=== PATIENT | male | born 1990 | race Caucasian/White ===

== ENCOUNTER → 2019-04-12 | Outpatient (CLI) | payer BC ==
--- NOTE | 2019-04-12 08:33 | US ---
EXAMINATION TYPE: US scrotum with doppler. Grayscale and color Doppler Duplex imaging performed of t he scrotum. DATE OF EXAM: 04/12/2019 COMPARISON: NONE CLINICAL HISTORY: N50.9 Disorder of male genital organs. Left side pain EXAM MEASUREMENTS: TESTICLES: Right Testicle: 3.3 x 2.1 x 2.8 cm Left Testicle: 1.6 x 1.0 x 1.8 cm EPIDIDYMIS HEAD: Right Epididymis: 1.2 x .3 x .9 cm Left Epididymis: 4.0 x 2.0 x 2.4 cm Doppler performed to assess for testicular vascularity; good bilateral color flow and waveforms are s een. There is no evidence of testicular torsion. Presence of hydroceles: No Presence of varicoceles: Yes on the left Left epididymal cyst 1.5 x .7 x 1.2 cm IMPRESSION: Small left epididymal cyst measuring 1.5 cm and small left-sided varicocele. No sonograph ic evidence of epididymoorchitis nor testicular torsion at the time of exam.
== END | disposition home or self-care (01) ==
LOC: RADUSWWP 07:08
PROVIDERS: ATTEND Family Medicine
DX: N50.3 Cyst of epididymis (principal); I86.1 Scrotal varices
CPT/HCPCS: 76870; 93975

== ENCOUNTER → 2019-04-12 | Day surgery (SDC) | payer BC ==
[2019-04-07 15:28] VITALS: BMI 24.4
[~2019-04-12] MED LIST: LACTATED RINGERS 1,000 ML IV SCH; LIDOCAINE 1% 20 ML VIAL (10MG/ML) FOR IV START INTRADERMA PRN; LIDOCAINE 1% INJ 10MG/ML (20 ML MDV) ONE; MIDAZOLAM 2 MG/2 ML VIAL ONE; PROPOFOL 10 MG/ML 20 ML VIAL IV ONE
[2019-04-12 08:24] VITALS: TEMP 98.5
--- NOTE | 2019-04-12 08:53 | P.GSHP ---
History of Present Illness H&P Date: 04/12/19 Chief Complaint: GERD, epigastric pain Inset 29-year-old male who presents today for EGD. He's had issues with GERD. Past Medical History Additional Past Medical History / Comment(s): HEMMOROIDS; OCC BLOOD IN STOOL. SEVERE HEARTBURN SINCE 11/2018; C/O ABD CRAMPS, THROAT SORENESS. History of Any Multi-Drug Resistant Organisms: None Reported Past Surgical History: Hernia Repair Additional Past Surgical History / Comment(s): WISDOM TEETH Past Anesthesia/Blood Transfusion Reactions: No Reported Reaction Smoking Status: Former smoker - Past Family History Mother Family Medical History: No Reported History Medications and Allergies Home Medications Medication Instructions Recorded Confirmed Type Omeprazole [PriLOSEC] 20 mg PO AC-BRKFST 04/07/19 04/07/19 History Allergies Allergy/AdvReac Type Severity Reaction Status Date / Time No Known Allergies Allergy Verified 04/12/19 08:13 Surgical - Exam Vital Signs Temp Pulse Resp BP Pulse Ox 98.5 F 84 16 143/87 100 04/12/19 08:22 04/12/19 08:22 04/12/19 08:22 04/12/19 08:22 04/12/19 08:22 - General well developed, well nourished, no distress - Eyes PERRL - ENT normal pinna - Neck no masses - Respiratory normal expansion - Cardiovascular Rhythm: regular - Abdomen Abdomen: soft, non tender Assessment and Plan Assessment: GERD. We'll perform EGD.
--- NOTE | 2019-04-12 09:02 | P.OP ---
Date of Procedure: 04/12/19 Preoperative Diagnosis: GERD Postoperative Diagnosis: Antral gastritis Moderate size sliding hiatal hernia Esophagitis Procedure(s) Performed: EGD Anesthesia: MAC Surgeon: Serafin Anne Pathology: other (Antrum, esophagus) Condition: stable Disposition: PACU Description of Procedure: Patient's placed on the endoscopy table in the lateral position. He received IV sedation. The gastroscope placed oropharynx and passed in the esophagus and stomach. Scope was then placed through the pylorus. The first and second portion of duodenum appeared normal. Scope was then brought back the antrum and this appeared mildly inflamed. A biopsies was performed. The scope was unretroflexed and remainder the stomach appeared normal. There was a moderate size sliding hiatal hernia. The GE junction was at 38 cm.. The distal esophagus appeared inflamed and a biopsies was performed. The proximal esophag us appeared normal. The scope was withdrawn for patient.
[2019-04-12 09:26] VITALS: BP 118/69; PULSE 81; RESP 16
== END | disposition home or self-care (01) ==
LOC: ORWHC2ENDO 07:40
PROVIDERS: ATTEND Surgery
DX: K29.50 Unspecified chronic gastritis without bleeding (principal); K21.0 Gastro-esophageal reflux disease with esophagitis; K44.9 Diaphragmatic hernia without obstruction or gangrene; Z87.891 Personal history of nicotine dependence; Z79.899 Other long term (current) drug therapy; Z87.19 Personal history of other diseases of the digestive system; Z98.818 Other dental procedure status; Z98.890 Other specified postprocedural states
CPT/HCPCS: 88305; 43239; J2250; J2001; J2704

== ENCOUNTER 2019-05-05 07:57 | Inpatient (IN) | payer BC ==
[~2019-05-05 07:57] MED LIST changes: +DEXAMETHASONE SOD PHOSPHATE 10 MG/ML 1 ML VIAL IV ONE; +HEPARIN SODIUM,PORCINE 5,000 UNIT/ML 1 ML VIAL SQ ONE; +HYDROmorphone 0.5 MG/0.5 ML SYRINGE IVP PRN; -LACTATED RINGERS 1,000 ML IV SCH; -LIDOCAINE 1% 20 ML VIAL (10MG/ML) FOR IV START INTRADERMA PRN; -LIDOCAINE 1% INJ 10MG/ML (20 ML MDV) ONE; -MIDAZOLAM 2 MG/2 ML VIAL ONE; +ONDANSETRON 4 MG/2 ML VIAL IVP ONE; -PROPOFOL 10 MG/ML 20 ML VIAL IV ONE
[2019-05-05] MEDS: LACTATED RINGERS 1,000 ML IV SCH (08:36)
[2019-05-05] MEDS ORDERED: LIDOCAINE 1% 20 ML VIAL (10MG/ML) FOR IV START INTRADERMA ONE (08:36)
--- NOTE | 2019-05-05 09:12 | P.GSHP ---
History of Present Illness H&P Date: 05/05/19 Chief Complaint: GERD This a 29-year-old male for from Dr. Wiseman. The patient has had long-standing problems with reflux esophagitis. The patient underwent recent EGD is found have evidence of esophagitis. Patient has been well informed on the procedure o f laparoscopic Maci fundoplication. The patient is aware the risk of the conversion to the open procedure, risk of injury to the stomach, liver and spleen. The patient is also a risk of recurrent GERD and dysphagia symptoms. The patient understands there is a postoperative diet of full liquids for 2 weeks after surgery. Past Medical History Past Medical History: GERD/Reflux Additional Past Medical History / Comment(s): HEMMOROIDS; OCC BLOOD IN STOOL. SEVERE HEARTBURN SINCE 11/2018; C/O ABD CRAMPS, THROAT SORENESS. History of Any Multi-Drug Resistant Organisms: None Reported Past Surgical History: Hernia Repair Additional Past Surgical History / Comment(s): WISDOM TEETH, EGD Past Anesthesia/Blood Transfusion Reactions: No Reported Reaction Smoking Status: Former smoker - Past Family History Mother Family Medical History: No Reported History Medications and Allergies Home Medications Medication Instructions Recorded Confirmed Type Omeprazole [PriLOSEC] 20 mg PO AC-BRKFST 04/07/19 05/05/19 History Allergies Allergy/AdvReac Type Severity Reaction Status Date / Time No Known Allergies Allergy Verified 05/05/19 08:17 Surgical - Exam Vital Signs Temp Pulse Resp BP Pulse Ox 98.0 F 83 18 120/78 100 05/05/19 08:22 05/05/19 08:22 05/05/19 08:22 05/05/19 08:22 05/05/19 08:22 - General well developed, well nourished, no distress - Eyes PERRL - ENT normal pinna - Neck no masses - Respiratory normal expansion - Cardiovascular Rhythm: regular - Abdomen Abdomen: soft, non tender Assessment and Plan Assessment: GERD. We'll perform laparoscopic Maci fundal plication.
[2019-05-05] MEDS ORDERED: GLYCOPYRROLATE 0.2 MG/ML 2 ML VIAL ONE (09:30)
[2019-05-05] MEDS ORDERED: KETOROLAC 30 MG/ML 1 ML VIAL ONE (09:30)
[2019-05-05] MEDS ORDERED: PROPOFOL 10 MG/ML 20 ML VIAL IV ONE (09:30)
[2019-05-05] MEDS ORDERED: LIDOCAINE 1% INJ 10MG/ML (20 ML MDV) ONE (09:30)
[2019-05-05] MEDS ORDERED: ROCURONIUM BROMIDE 10 MG/ML 10 ML VIAL IV ONE (09:30)
[2019-05-05] MEDS ORDERED: fentaNYL (PF) 50 MCG/ML 2 ML AMP ONE (09:30)
[2019-05-05] MEDS ORDERED: HYDROmorphone (PF) 1 MG/ML ONE (09:30)
[2019-05-05] MEDS ORDERED: MIDAZOLAM 2 MG/2 ML VIAL ONE (09:30)
[2019-05-05] MEDS ORDERED: NEOSTIGMINE 1 MG/ML 10 ML VIAL ONE (09:30)
[2019-05-05] MEDS ORDERED: PHENYLEPHRINE-0.9% NACL SYG 1 MG/10 ML SYRINGE ONE (09:30)
[2019-05-05] MEDS ORDERED: BUPIVACAINE (PF) 0.25% 30 ML VIAL SQ ONE (10:03)
--- NOTE | 2019-05-05 10:37 | P.OP ---
Date of Procedure: 05/05/19 Preoperative Diagnosis: GERD Postoperative Diagnosis: GERD Procedure(s) Performed: Laparoscopic Maci fundal plication Anesthesia: TYESHA Surgeon: Serafin Anne Estimated Blood Loss (ml): 5 Pathology: none sent Condition: stable Disposition: PACU Description of Procedure: The patient was placed on the operating table in the supine position. The patient received general anesthesia. And was placed in dorsal lithotomy position. The patient was prepped and draped in the usual sterile fashion. The skin incision sites were anesthetized with 1% local Xylocaine. The skin was incised in the left periumbilical area and then using a blade less 5 mm trocar under direct visualization panel cavity was entered. After adequate insufflation the laparoscope was then placed into the peritoneal cavity. Next a 5 mm trochars placed in the right epigastric position. Another 5 millimeter trocar the right lateral position. Another 5 millimeter trocar in the left lateral position a 5 mm trocar is placed in the left epigastric position. And then the initial 5 mm trocar was exchanged for a 10 mm trocar. The left lateral lobe liver was retracted. The hernia was seen. The crural defect was then dissected using the Harmonic scissors device. A 360 crural dissection was p erformed the esophagus stomach was reduced back into the peritoneal Cavity. The crural defect was then closed using 2-0 Ethibond suture. Next the fundus of the stomach was mobilized using the [place] scissors device. and then a 58-[place]uv[place] bougie dilator was placed oropharynx passed into the esophagus and stomach the fundal plication wrap was then performed by grasping the fundus posteriorly and bringing it around the esophagus and stomach fundoplication was then performed using 2-0 Ethibond suture. Care was taken that the fundal location rested over top of the intra-abdominal esophagus. There was no injury seen to the stomach or esophagus. The dilator was then withdrawn. The abdomen was irrigated there is no bleeding seen. The trochars were then withdrawn and then skin incision sites were closed using 3-0 Monocryl suture Steri-Strips are applied. Patient thought procedure well and sent to recovery room in stable condition.
[2019-05-05] MEDS ORDERED: LACTATED RINGERS 1,000 ML IV ONE (10:54)
[2019-05-05] MEDS: METOCLOPRAMIDE 5 MG/ML 2 ML VIAL IVP SCH ×3 (14:07→23:00)
[2019-05-05 15:18] VITALS: BMI 24.4
--- NOTE | 2019-05-05 15:58 | FL ---
EXAMINATION TYPE: FL esophagus cervic/pharynx DATE OF EXAM: 05/05/2019 LIMITED UGI-ESOPHAGRAM: CLINICAL HISTORY: Post Sedrick fundoplication TECHNIQUE: Limited esophagram is performed utilizing 20 oz of Omnipaque 350. A total of 46 seconds o f fluoroscopic time was utilized during procedure. 12 images were obtained. FINDINGS: Small amount of free air is under the right diaphragm. Small to moderate amount of free air is under the left diaphragm. Air is also bowel gas under the right diaphragm. The esophagus dilates to normal caliber within the visualized portion. This extends to the Sedrick fun doplication. At the level of the Sedrick fundoplication there is moderate hesitancy passing through th is level. This opens to a reasonable caliber however. Overhead radiographs were obtained. No suspicious changes to suggest extravasation is evident. IMPRESSION: No evidence of leak or significant obstruction status post Sedrick fundoplication surgery earlier today. Moderate hesitancy passing through the postsurgical site is evident at this time.
[2019-05-05] MEDS: D5-0.45% NACL WITH KCL 20MEQ/L 1,000 ML IV SCH ×2 (16:24→23:05)
[2019-05-05] MEDS: HYDROmorphone 1 MG/ML 1 ML SYRINGE IVP PRN ×2 (17:52→23:01)
--- NOTE | 2019-05-05 23:11 | P.CONS ---
History of Present Illness - Reason for Consult Consult date: 05/05/19 Medical management And postoperative care - Chief Complaint Status post Maci fundoplication - History of Present Illness Patient is a 29-year-old male with a known history of hemorrhoids, GERD for several years has been having recently problems with gastric reflux and recently had EGD which showed esophagitis. Patient underwent laparoscopic Maci fundoplication today. Patient tolerated the procedure very well. Currently pain is controlled with IV Dilaudid. Patient is also complaining of urinary retention and lower abdominal fullness. Denied any complaints of chest pain or shortness of breath. No nausea vomiting or diarrhea. No fever no chills. No cough or sputum production. Patient does have a history of smoking. Review of Systems Constitutional: Patient denies any fever or chills . No generalized weakness or weight loss. Abdomen: Patient denied nausea vomiting and diarrhea and abdominal pain. Cardiovascular: Patient denies any chest pain or short of breath no palpitations. Respiratory: patient denied any cough is from production. No shortness of breath Neurologic: Patient denied any numbness or tingling headache. Musculoskeletal: Patient denies any complaints of joint swelling or deformity. Skin: Negative Psychiatric: Negative Endocrine: No heat or cold intolerance. No recent weight gain. Genitourinary: No dysuria or hematuria. All other 14 point ROS negative except the above Past Medical History Past Medical History: GERD/Reflux Additional Past Medical History / Comment(s): HEMMOROIDS; OCC BLOOD IN STOOL. SEVERE HEARTBURN SINCE 11/2018; C/O ABD CRAMPS, THROAT SORENESS. History of Any Multi-Drug Resistant Organisms: None Reported Past Surgical History: Hernia Repair Additional Past Surgical History / Comment(s): WISDOM TEETH, EGD Past Anesthesia/Blood Transfusion Reactions: No Reported Reaction Past Psychological History: No Psychological Hx Reported Smoking Status: Never smoker Past Alcohol Use History: Occasional Additional Past Alcohol Use History / Comment(s): SMOKED FOR FEW MONTHS; CHEWED TOBACCO FOR 6 YEARS, QUIT 2017 Past Drug Use History: None Reported - Past Family History Mother Family Medical History: No Reported History Medications and Allergies Home Medications Medication Instructions Recorded Confirmed Type Omeprazole [PriLOSEC] 20 mg PO AC-BRKFST 04/07/19 05/05/19 History Allergies Allergy/AdvReac Type Severity Reaction Status Date / Time No Known Allergies Allergy Verified 05/05/19 08:17 Physical Exam Vitals: Vital Signs Temp Pulse Pulse Pulse Resp BP BP 05/05/19 13:57 98.8 F 90 17 135/87 05/05/19 13:10 100 16 132/78 05/05/19 12:30 95 16 137/79 05/05/19 12:15 96 16 136/79 05/05/19 11:55 93 16 137/80 05/05/19 11:40 86 16 135/86 05/05/19 11:25 91 16 137/75 05/05/19 11:10 94 18 130/74 05/05/19 10:55 96 16 130/74 05/05/19 10:40 97.5 F L 92 14 141/93 05/05/19 08:22 98.0 F 83 18 120/78 Pulse Ox 05/05/19 13:57 98 05/05/19 13:10 98 05/05/19 12:30 99 05/05/19 12:15 99 05/05/19 11:55 100 05/05/19 11:40 99 05/05/19 11:25 99 05/05/19 11:10 99 05/05/19 10:55 100 05/05/19 10:40 100 05/05/19 08:22 100 Intake and Output 05/04/19 05/05/19 05/05/19 22:59 06:59 14:59 Intake Total 1750 Output Total 5 Balance 1745 Intake: IV 1750 Output: Estimated Blood Loss 5 Other: Weight 81.647 kg PHYSICAL EXAMINATION: Patient is lying in the bed comfortably, no acute distress, awake alert and oriented.. HEENT: Normocephalic. Neck is supple. Pupils reactive. Nostrils clear. Oral cavity is moist. Ears reveal no drainage. Neck reveals no JVD, carotid bruits, or thyromegaly. CHEST EXAMINATION: Trachea is central. Symmetrical expansion. Lung garcia clear to auscultation and percussion. CARDIAC: Normal S1, S2 with no gallops. No murmurs ABDOMEN: Soft. Bowel sounds normal. No organomegaly. No abdominal bruits. Extremities: reveal no edema. No clubbing or cyanosis Neurologically awake, alert, oriented x3 with well-coordinated movements. No focal deficits noted Skin: No rash or skin lesions. Psychiatric: Coperative. Nonsuicidal Musculoskeletal: No joint swelling or deformity. Normal range of motion. Assessment and Plan Assessment: Status post laparoscopic Maci fundoplication. Postoperative day 0 Gastroesophageal reflux disease History of hemorrhoids with occasional bleeding. Currently ambulation for DVT prophylaxis Possible urinary retention. Bladder scan was ordered. Plan: Patient be continued on IV hydration. Encourage incentive spirometry and ambulation. Started on clear liquid diet. Patient has not passed flatus. We will continue the pain management and further recommendations based on the clinical course. Thank you for your consult. Time with Patient: Greater than 30
[2019-05-06] MEDS: HYDROmorphone 1 MG/ML 1 ML SYRINGE IVP PRN ×2 (03:08→07:11)
[2019-05-06] MEDS: LACTATED RINGERS 1,000 ML IV SCH (03:54)
[2019-05-06] MEDS: METOCLOPRAMIDE 5 MG/ML 2 ML VIAL IVP SCH ×2 (05:19→11:51)
[2019-05-06] MEDS ORDERED: HYDROcodone/APAP 5-325MG 1 EACH TAB PO PRN (07:40)
[2019-05-06 08:15] LABS: African American GFR (CKD) >90 (>60 ml/min/1.73 sqM); Anion Gap 7 mmol/L; Blood Urea Nitrogen 10 mg/dL (9-20); Calcium 9.1 mg/dL (8.4-10.2); Carbon Dioxide 29 mmol/L (22-30); Chloride 104 mmol/L (98-107); Glucose 107 mg/dL (74-99); Potassium 3.9 mmol/L (3.5-5.1); Sodium 140 mmol/L (137-145)
[2019-05-06 08:17] LABS: Basophils % (A) 0 %; Eosinophils % (A) 0 %; HCT 38.2 % (39.0-53.0); HGB 13.2 gm/dL (13.0-17.5); Lymphocytes # (A) 2.5 k/uL (1.0-4.8); Lymphocytes % (A) 19 %; MCH 29.4 pg (25.0-35.0); MCHC 34.4 g/dL (31.0-37.0); MCV 85.3 fL (80.0-100.0); Mean Platelet Volume 6.7; Monocytes # (A) 0.8 k/uL (0-1.0); Monocytes % (A) 6 %; Neutrophils % (A) 73 %; Platelet Count 212 k/uL (150-450); RBC 4.48 m/uL (4.30-5.90); WBC 13.6 k/uL (3.8-10.6)
[2019-05-06 08:32] VITALS: BP 129/76; PULSE 92; RESP 16; TEMP 98.5
--- NOTE | 2019-05-06 11:00 | P.DS ---
Providers Date of admission: 05/05/19 07:57 Expected date of discharge: 05/06/19 Attending physician: Serafin Anne Consults: 05/05/19 10:37 Consult Physician Routine Consulting Provider: Chidi Cole Consult Reason/Comments: Medical management Do you want consulting provider notified?: Yes Primary care physician: Memo Wiseman MD Hospital Course: 29-year-old male who underwent laparoscopic Maci fundoplication with Dr. Anne on 05/05/2019. Patient is doing well postoperatively without any immediate complications. Esophagram completed postoperatively negative for leak or obstruction. He is tolerating clear liquid diet. Pain controlled on oral medications. Vital signs have been stable. He is stable for discharge home today. Please see EMR for further hospital course details. Discharge diagnosis 1. GERD, status post laparoscopic Maci fundoplication Nurse practitioner note has been reviewed by physician. Signing provider agrees with the documented findings, assessment, and plan of care. Patient Condition at Discharge: Stable Plan - Discharge Summary Discharge Rx Participant: Yes New Discharge Prescriptions: No Action Omeprazole [PriLOSEC] 20 mg PO AC-BRKFST Discharge Medication List Omeprazole [PriLOSEC] 20 mg PO AC-BRKFST 04/07/19 [History]
== END 2019-05-06 13:25 | disposition home or self-care (01) | DRG 328 ==
LOC: 2ORMAIN 07:57 → 4SSUR 13:17
PROVIDERS: ADMIT Surgery; ATTEND Surgery
PROC: 0BQT4ZZ Repair Diaphragm, Percutaneous Endoscopic Approach (ICD-10-PCS; 2019-05-05)
PROC: 0DV44ZZ Restriction of Esophagogastric Junction, Percutaneous Endoscopic Approach (ICD-10-PCS; principal; 2019-05-05 09:05)
DX: K21.0 Gastro-esophageal reflux disease with esophagitis (principal); K44.9 Diaphragmatic hernia without obstruction or gangrene; K64.9 Unspecified hemorrhoids; R33.9 Retention of urine, unspecified; Z87.891 Personal history of nicotine dependence
CPT/HCPCS: 74210; 80048; 85025

== ENCOUNTER 2019-05-20 20:16 | Emergency (ER) | payer BC ==
[2019-05-20] MEDS ORDERED: predniSONE 50 MG TAB PO STA (21:15)
--- NOTE | 2019-05-20 21:31 | ED ---
General Adult HPI - General Chief complaint: Allergic Reaction Stated complaint: Swollen hands, possible allergic reaction Time Seen by Provider: 05/20/19 20:35 Source: patient, RN notes reviewed, old records reviewed Mode of arrival: ambulatory Limitations: no limitations - History of Present Illness Initial comments: 29-year-old male patient in the chief complaint of bilateral hand swelling that developed approximately one hour ago. Patient was on left hand between the second third metacarpal he felt some swelling. Patient reports in his right hand develop some first metacarpophalangeal swelling. Patient was that this is improving. Patient denies any facial swelling, difficulty breathing, sensation of throat closing. Patient does report that he did have a surgery approximately 3 weeks ago and developed contact dermatitis from the port sites. As was a hiatal hernia repair. Patient denies any previous history of beer ALLERGIC reactions. Denies a previous history of rheumatologic disease. Systemic: Pt denies fatigue, fever/chills. Pt denies weakness, night sweats, weight loss. Neuro: Pt denies headache, visual disturbances, syncope or pre-syncope. HEENT: Pt denies ocular discharge or irritation, otalgia, rhinorrhea, pharyngitis or notable lymphadenopathy. Cardiopulmonary: Pt denies chest pain, SOB, heart palpitations, dyspnea on exertion. Abdominal/GI: Pt denies abdominal pain, n/v/d. : Pt denies dysuria, burning w/ urination, frequency/urgency. Denies new onset urinary or bowel incontinence. MSK: Pt denies myalgia, loss of strength or function in extremities. Neuro: Pt denies new onset weakness, paresthesias. - Related Data Home Medications Medication Instructions Recorded Confirmed Omeprazole [PriLOSEC] 20 mg PO AC-BRKFST 04/07/19 05/05/19 Previous Rx's Medication Instructions Recorded Bisacodyl [Dulcolax] 5 mg PO DAILY PRN #5 tablet. 05/06/19 Hydrocodone/Acetaminophen [Paicines 1 tab PO Q6HR PRN 3 Days #12 tab 05/06/19 5-325] EPINEPHrine (Auto Inject) [Epipen] 0.3 mg IM ONCE PRN #1 pack 05/20/19 predniSONE 50 mg PO DAILY 4 Days #4 tab 05/20/19 Allergies Allergy/AdvReac Type Severity Reaction Status Date / Time No Known Allergies Allergy Verified 05/20/19 20:27 Review of Systems ROS Statement: Those systems with pertinent positive or pertinent negative responses have been documented in the HPI. ROS Other: All systems not noted in ROS Statement are negative. Past Medical History Past Medical History: GERD/Reflux Additional Past Medical History / Comment(s): HEMMOROIDS; OCC BLOOD IN STOOL. SEVERE HEARTBURN SINCE 11/2018; C/O ABD CRAMPS, THROAT SORENESS. History of Any Multi-Drug Resistant Organisms: None Reported Past Surgical History: Hernia Repair Additional Past Surgical History / Comment(s): WISDOM TEETH, EGD Past Anesthesia/Blood Transfusion Reactions: No Reported Reaction Past Psychological History: No Psychological Hx Reported Smoking Status: Never smoker Past Alcohol Use History: Occasional Past Drug Use History: None Reported - Past Family History Mother Family Medical History: No Reported History General Exam - General Exam Comments Initial Comments: Constitutional: NAD, AOX3, Pt has pleasant affect. HEENT: NC/AT, trachea midline, neck supple, no lymphadenopathy. Posterior pharynx non erythematous, without exudates. External ears appear normal, without discharge. Mucous membranes moist. Eyes PERRLA, EOM intact. There is no scleral icterus. No pallor noted. Cardiopulmonary: RRR, no murmurs, rubs or gallops, no JVD noted. Lungs CTAB in anterior and posterior garcia. No peripheral edema. Abdominal exam: Abdomen soft and non-distended. Abdomen non-tender to palpation in all 4 quadrants. Bowel sounds active in LLQ. No hepatosplenomegaly. No ecchymosis Neuro: CN II-XII grossly intact. No nuchal rigidity. No raccon eyes, no hernandez sign, no hemotympanum. No cervical spinal tenderness. MSK: No posterior calf tenderness bilaterally, homans sign negative bilaterally. Posterior tibialis and radial pulse +2 bilaterally. Sensation intact in upper and lower extremities. Full active ROM in upper and lower extremities, 5/5 stregnth. Derm: Mild amount of swelling noted to interspace between second and third metacarpal phalangeal joint on pain. Full active range of motion intact. Nontender. Mild swelling to right first MCP joint. Full active range of motion. All he tender at base. No erythema or skin changes bilaterally. Neurovascular intact bilaterally, cap refill less than 2 seconds. Mild amount of contact dermatitis noted at port sites on her anterior abdomen region. Port sites to appear to To be dry and noninfected. No mucosal involvement. Limitations: no limitations Course Vital Signs 05/20/19 05/20/19 05/20/19 20:25 20:45 21:40 Temperature 98.1 F 98.2 F Pulse Rate 86 81 Respiratory 20 18 16 Rate Blood Pressure 131/87 128/82 O2 Sat by Pulse 99 98 Oximetry Medical Decision Making - Medical Decision Making 29-year-old male patient in the chief complaint of bilateral hand swelling that developed approximately one hour ago. Patient was on left hand between the second third metacarpal he felt some swelling. Patient reports in his right hand develop some first metacarpophalangeal swelling. Patient was that this is improving. Patient denies any facial swelling, difficulty breathing, sensation of throat closing. Patient does report that he did have a surgery approximately 3 weeks ago and developed contact dermatitis from the port sites. As was a hiatal hernia repair. Patient denies any previous history of beer ALLERGIC reactions. Denies a previous history of rheumatologic disease. Pt VSS, afebrile. Mild amount of swelling noted to interspace between second and third metacarpal phalangeal joint on pain. Full active range of motion intact. Nontender. Mild swelling to right first MCP joint. Full active range of motion. All he tender at base. No erythema or skin changes bilaterally. Neurovascular intact bilaterally, cap refill less than 2 seconds. Mild amount of contact dermatitis noted at port sites on her anterior abdomen region. Port sites to appear to To be dry and noninfected. No mucosal involvement. Patient was discharged with burst steroid treatment. Patient to follow up with primary care provider will return to ER if condition worsens. Case discussed with Dr. Aranda. Disposition Clinical Impression: Hand swelling, Allergic reaction Disposition: HOME SELF-CARE Condition: Stable Instructions (If sedation given, give patient instructions): General Allergic Reaction (ED) Additional Instructions: Patient to adhere to previously discussed treatment plan and will take medication(s) as directed. Patient to follow up with PCP in 1-2 days. Patient to return to ED if symptoms do not improve. Take steroids as directed. Follow up with primary care provider tomorrow. Return to ER if condition worsens. Prescriptions: EPINEPHrine (Auto Inject) [Epipen] 0.3 mg IM ONCE PRN #1 pack PRN Reason: Anaphylaxis predniSONE 50 mg PO DAILY 4 Days #4 tab Is patient prescribed a controlled substance at d/c from ED?: No Referrals: Memo Wiseman MD [Primary Care Provider] - 1-2 days
[2019-05-20 21:41] VITALS: BP 128/82; PULSE 81; RESP 16; TEMP 98.2
== END 2019-05-20 21:40 | disposition home or self-care (01) ==
LOC: EC 20:16
DX: T78.40XA Allergy, unspecified, initial encounter (principal); M79.89 Other specified soft tissue disorders; K21.9 Gastro-esophageal reflux disease without esophagitis; Z79.899 Other long term (current) drug therapy; Z98.890 Other specified postprocedural states
CPT/HCPCS: 99283; J7512

== ENCOUNTER 2020-10-11 11:18 | Emergency (ER) | payer BC ==
[2020-10-11 11:23] VITALS: RESP 18; TEMP 98.3
--- NOTE | 2020-10-11 11:43 | ED ---
General Adult HPI - General Chief complaint: Chest Pain Stated complaint: dizziness, chest pain Time Seen by Provider: 10/11/20 11:26 Source: patient Mode of arrival: ambulatory Limitations: no limitations - History of Present Illness Initial comments: 30-year-old male with a past medical history of GERD presents to the emergency room for multiple complaints. Patient's first complaint is headache that has been persistent for one week. He shouldn't states it feels like her normal headache would feel but has been persistent. Rates the pain at a 2 out of 10. He states the pain is mild but that it just will not resolve. Patient has been taking Motrin without relief. Patient denies any visual changes or weakness of the upper or lower extremities. Patient also complaining of chest tightness. Patient states he has been on and off for 2 days. Patient states he notices this when his causes some stress. States that she was very anxious about something yesterday and was talking to him about it and it was making his chest feels squeezing tight in making him feel anxious. He denies any pain worsening with exertion. He has been working out and this does not worsen the pain. Denies shortness of breath. Denies pain with deep breathing. It denies any radiating pain to the arms or neck or jaw. Denies smoking history aside from marijuana which she quit 3 weeks ago. Denies hyperlipidemia or hypertension or diabetes. Denies Patient has no other complaints at this time including shortness of breath, , abdominal pain, nausea or vomiting, or visual changes. - Related Data Home Medications Medication Instructions Recorded Confirmed Omeprazole [PriLOSEC] 20 mg PO AC-BRKFST 04/07/19 05/05/19 Previous Rx's Medication Instructions Recorded Hydrocodone/Acetaminophen [[place] 1 tab PO Q6HR PRN 3 Days #12 tab 05/06/19 5-325] bisacodyL [Dulcolax] 5 mg PO DAILY PRN #5 tablet. 05/06/19 EPINEPHrine (Auto Inject) [Epipen] 0.3 mg IM ONCE PRN #1 pack 05/20/19 predniSONE 50 mg PO DAILY 4 Days #4 tab 05/20/19 Allergies Allergy/AdvReac Type Severity Reaction Status Date / Time No Known Allergies Allergy Verified 10/11/20 11:23 Review of Systems ROS Statement: Those systems with pertinent positive or pertinent negative responses have been documented in the HPI. ROS Other: All systems not noted in ROS Statement are negative. Past Medical History Past Medical History: GERD/Reflux Additional Past Medical History / Comment(s): HEMMOROIDS; OCC BLOOD IN STOOL. SEVERE HEARTBURN SINCE 11/2018; C/O ABD CRAMPS, THROAT SORENESS. History of Any Multi-Drug Resistant Organisms: None Reported Past Surgical History: Hernia Repair Additional Past Surgical History / Comment(s): WISDOM TEETH, EGD Past Anesthesia/Blood Transfusion Reactions: No Reported Reaction Past Psychological History: No Psychological Hx Reported Smoking Status: Former smoker Past Alcohol Use History: Occasional Past Drug Use History: Marijuana - Past Family History Mother Family Medical History: No Reported History General Exam Limitations: no limitations General appearance: alert Head exam: Present: atraumatic, normocephalic, normal inspection Eye exam: Present: normal appearance, PERRL, EOMI. Absent: scleral icterus ENT exam: Present: normal exam, mucous membranes moist Neck exam: Present: normal inspection, full ROM. Absent: tenderness Respiratory exam: Present: normal lung sounds bilaterally. Absent: respiratory distress, wheezes Cardiovascular Exam: Present: regular rate, normal rhythm, normal heart sounds GI/Abdominal exam: Present: soft, normal bowel sounds. Absent: distended, tenderness Neurological exam: Present: alert, oriented X3, other (GCS 15) Expanded Patient oriented to: Present: person, place, time Speech: Present: fluid speech Cranial nerves: EOM's Intact: Normal, Tongue Deviation: Normal, Nystagmus: Normal, Facial Sensation: Normal Upper motor neuron: Pronator Drift: Normal Sensory exam: Upper Extremity Light Touch: Normal, Upper Extremity Pin Prick: Normal, Lower Extremity Light Touch: Normal, Lower Extremity Pin Prick: Normal Motor strength exam: RUE: 5, LUE: 5, RLE: 5, LLE: 5 Course Vital Signs 10/11/20 11:19 Temperature 98.3 F Pulse Rate 85 Respiratory 18 Rate Blood Pressure 138/94 O2 Sat by Pulse 97 Oximetry EKG Findings - EKG Comments: EKG Findings:: Normal sinus rhythm, ventricular rate 85, MO interval 154, QTC 430 Medical Decision Making - Medical Decision Making Vitals are stable. CBC CMP unremarkable. Troponin negative. Chest x-ray shows no acute cardiopulmonary process. CT brain was obtained given patient has had a headache for one week. This shows no acute intracranial hemorrhage mass effect or midline shift. There is a finding of right MCA slightly hyperdense which could be related to dehydration or technical. Clinically there are no left-sided symptoms to indicate a thrombus within the right MCA. This is consistent with incidental finding and would not support finding of mild headache. Low-lying cerebellar tonsils noted. At this time patient was given Toradol and fluids and felt significantly better. Pain is 0. EKG unremarkable. Nonischemic. Troponin negative. Chest x-ray shows no acute cardiopulmonary process. I suspect the chest discomfort is related to stress as he states this only happens when his is causing him to be anxious. He denies any typical symptoms associated with ischemic chest pain. Patient requesting discharge home. Patient will follow up with his primary care provider and return for any worsening symptoms. I discussed this case with attending Dr. Whittaker who agrees with this assessment and treatment plan. - Lab Data Result diagrams: 10/11/20 11:52 10/11/20 11:52 Lab Results 10/11/20 10/11/20 10/11/20 Range/Units 11:52 11:52 11:52 WBC 7.3 (3.8-10.6) k/uL RBC 5.25 (4.30-5.90) m/uL Hgb 15.9 (13.0-17.5) gm/dL Hct 45.2 (39.0-53.0) % MCV 86.2 (80.0-100.0) fL MCH 30.2 (25.0-35.0) pg MCHC 35.1 (31.0-37.0) g/dL RDW 12.4 (11.5-15.5) % Plt Count 262 (150-450) k/uL MPV 7.0 Neutrophils % 54 % Lymphocytes % 35 % Monocytes % 7 % Eosinophils % 1 % Basophils % 1 % Neutrophils # 4.0 (1.3-7.7) k/uL Lymphocytes # 2.5 (1.0-4.8) k/uL Monocytes # 0.5 (0-1.0) k/uL Eosinophils # 0.1 (0-0.7) k/uL Basophils # 0.1 (0-0.2) k/uL PT 10.4 (9.0-12.0) sec INR 1.0 (<1.2) APTT 22.8 (22.0-30.0) sec Sodium 142 (137-145) mmol/L Potassium 4.2 (3.5-5.1) mmol/L Chloride 102 (98-107) mmol/L Carbon Dioxide 28 (22-30) mmol/L Anion Gap 12 mmol/L BUN 14 (9-20) mg/dL Creatinine 0.83 (0.66-1.25) mg/dL Est GFR (CKD-EPI)AfAm >90 (>60 ml/min/1.73 sqM) Est GFR (CKD-EPI)NonAf >90 (>60 ml/min/1.73 sqM) Glucose 89 (74-99) mg/dL Calcium 10.8 H (8.4-10.2) mg/dL Magnesium 2.4 H (1.6-2.3) mg/dL Total Bilirubin 1.1 (0.2-1.3) mg/dL AST 22 (17-59) U/L ALT 18 (4-49) U/L Alkaline Phosphatase 57 (38-126) U/L Troponin I (0.000-0.034) ng/mL Total Protein 8.8 H (6.3-8.2) g/dL Albumin 5.6 H (3.5-5.0) g/dL Lipase 52 (23-300) U/L 10/11/20 Range/Units 11:52 WBC (3.8-10.6) k/uL RBC (4.30-5.90) m/uL Hgb (13.0-17.5) gm/dL Hct (39.0-53.0) % MCV (80.0-100.0) fL MCH (25.0-35.0) pg MCHC (31.0-37.0) g/dL RDW (11.5-15.5) % Plt Count (150-450) k/uL MPV Neutrophils % % Lymphocytes % % Monocytes % % Eosinophils % % Basophils % % Neutrophils # (1.3-7.7) k/uL Lymphocytes # (1.0-4.8) k/uL Monocytes # (0-1.0) k/uL Eosinophils # (0-0.7) k/uL Basophils # (0-0.2) k/uL PT (9.0-12.0) sec INR (<1.2) APTT (22.0-30.0) sec Sodium (137-145) mmol/L Potassium (3.5-5.1) mmol/L Chloride (98-107) mmol/L Carbon Dioxide (22-30) mmol/L Anion Gap mmol/L BUN (9-20) mg/dL Creatinine (0.66-1.25) mg/dL Est GFR (CKD-EPI)AfAm (>60 ml/min/1.73 sqM) Est GFR (CKD-EPI)NonAf (>60 ml/min/1.73 sqM) Glucose (74-99) mg/dL Calcium (8.4-10.2) mg/dL Magnesium (1.6-2.3) mg/dL Total Bilirubin (0.2-1.3) mg/dL AST (17-59) U/L ALT (4-49) U/L Alkaline Phosphatase (38-126) U/L Troponin I <0.012 (0.000-0.034) ng/mL Total Protein (6.3-8.2) g/dL Albumin (3.5-5.0) g/dL Lipase (23-300) U/L Disposition Clinical Impression: Headache Disposition: HOME SELF-CARE Condition: Good Instructions (If sedation given, give patient instructions): Acute Headache (ED) Additional Instructions: Please follow-up with your primary care provider in one to 2 days to review CAT scan results. If you have any worsening symptoms in the meantime return to the emergency room. Is patient prescribed a controlled substance at d/c from ED?: No Referrals: Memo Wiseman MD [Primary Care Provider] - 1-2 days Time of Disposition: 14:06
[2020-10-11 12:05] LABS: Basophils # (A) 0.1 k/uL (0-0.2); Basophils % (A) 1 %; Eosinophils # (A) 0.1 k/uL (0-0.7); Eosinophils % (A) 1 %; HCT 45.2 % (39.0-53.0); HGB 15.9 gm/dL (13.0-17.5); Lymphocytes # (A) 2.5 k/uL (1.0-4.8); Lymphocytes % (A) 35 %; MCH 30.2 pg (25.0-35.0); MCHC 35.1 g/dL (31.0-37.0); MCV 86.2 fL (80.0-100.0); Monocytes # (A) 0.5 k/uL (0-1.0); Monocytes % (A) 7 %; Neutrophils % (A) 54 %; Platelet Count 262 k/uL (150-450); RBC 5.25 m/uL (4.30-5.90); RDW 12.4 % (11.5-15.5); WBC 7.3 k/uL (3.8-10.6)
[2020-10-11 12:17] LABS: ALT 18 U/L (4-49); AST 22 U/L (17-59); African American GFR (CKD) >90 (>60 ml/min/1.73 sqM); Albumin 5.6 g/dL (3.5-5.0); Alkaline Phosphatase 57 U/L (38-126); Anion Gap 12 mmol/L; Blood Urea Nitrogen 14 mg/dL (9-20); Calcium 10.8 mg/dL (8.4-10.2); Carbon Dioxide 28 mmol/L (22-30); Chloride 102 mmol/L (98-107); Glucose 89 mg/dL (74-99); Lipase 52 U/L (23-300); Magnesium 2.4 mg/dL (1.6-2.3); Non-African American GFR(CKD) >90 (>60 ml/min/1.73 sqM); Potassium 4.2 mmol/L (3.5-5.1); Sodium 142 mmol/L (137-145); Total Bilirubin 1.1 mg/dL (0.2-1.3); Total Protein 8.8 g/dL (6.3-8.2)
--- NOTE | 2020-10-11 12:30 | CT ---
EXAMINATION TYPE: CT brain wo con DATE OF EXAM: 10/11/2020 COMPARISON: None HISTORY: headache, dizziness, lightheadedness CT DLP: 1090.4 mGycm. Automated Exposure Control for Dose Reduction was Utilized. TECHNIQUE: CT scan of the head is performed without contrast. FINDINGS: There is no acute intracranial hemorrhage, mass effect, or midline shift identified. The ventricles and sulci are within normal limits in size. The globes are intact and the visualized sin uses are clear. Cerebellar tonsils low-lying in position at the level of foramen magnum. IMPRESSION: 1. No acute intracranial hemorrhage, mass effect, or midline shift is seen. Right MCA slightly hyperd ense which could be related to dehydration or technical. Correlate clinically for left-sided symptoms to exclude a thrombus within the right MCA. 2. Low-lying cerebellar tonsils.
--- NOTE | 2020-10-11 12:31 | XR ---
EXAMINATION TYPE: XR chest 2V DATE OF EXAM: 10/11/2020 COMPARISON: Chest x-ray 04/29/2010 HISTORY: Chest pain TECHNIQUE: Frontal and lateral views of the chest are obtained. FINDINGS: There is no focal air space opacity, pleural effusion, or pneumothorax seen. The cardiac silhouette size is within normal limits. There are overlying leads, artifacts. There may be a spinal curvature. The osseous structures are intact. IMPRESSION: No acute cardiopulmonary process.
[2020-10-11 12:35] LABS: Partial Thromboplastin Time 22.8 sec (22.0-30.0); Prothrombin Time 10.4 sec (9.0-12.0)
[2020-10-11] MEDS ORDERED: KETOROLAC 15 MG/ML 1 ML VIAL IVP STA (12:57)
[2020-10-11] MEDS ORDERED: SODIUM CHLORIDE 0.9% 1,000 ML IV ONE (13:14)
[2020-10-11 14:17] VITALS: BP 137/93; PULSE 81
== END 2020-10-11 14:17 | disposition home or self-care (01) ==
LOC: EC 11:18
DX: R51.9 Headache, unspecified (principal); K21.9 Gastro-esophageal reflux disease without esophagitis; Z79.899 Other long term (current) drug therapy; Z87.891 Personal history of nicotine dependence
CPT/HCPCS: 36415; 93005; 80053; 83690; 83735; 84484; 85025; 85610; 85730; 71046; 70450; 99285; 96374; 96361; J1885

== ENCOUNTER → 2023-07-07 | Outpatient (CLI) | payer BC ==
--- NOTE | 2023-07-14 21:07 | MR ---
EXAMINATION TYPE: MR brain and iac wo con DATE OF EXAM: 07/07/2023 COMPARISON: CT 10/11/2020 HISTORY: 33-year-old male H93.19 TINNITUS, UNSPECIFIED EAR, Lt ear ringing TECHNIQUE: Multiplanar, multisequence images of the brain and brainstem were acquired without IV con trast. Diffusion weighted imaging was performed. Additional coned-down sequences through the interna l auditory canals and posterior cranial fossa without contrast administration. FINDINGS: Diffusion weighted images demonstrate no evidence of an acute ischemic lesion in the brain. T2/FLAIR weighted sequences show no abnormal white matter signal changes. Midline structures demonstrate partially empty sella but otherwise normal morphology. There is trace 2 mm benign right-sided cerebellar tonsillar ectopia. Otherwise, the craniocervical junction is rachna l. Brain volume is age appropriate. The ventricles are of normal caliber. There is no evidence of an acute intracranial hemorrhage, infarct, mass, mass-effect or an extra-axia l fluid collection. There is no cerebellopontine angle mass. The internal auditory canals are symmetric. Brainstem and skull base abnormalities are not seen. There is a dominant right vertebral artery. No evident abnormality of the noncontrast enhanced appearance of the labyrinths. Rightward nasal septal deviation. Mild mucosal thickening ethmoid air cells and right maxillary sinus . Globes are intact. IMPRESSION: 1. No specific abnormality identified on noncontrast acoustic MRI. 2. No acute intracranial abnormality seen. No abnormal white matter signal changes. 3. Minimal 2 mm of benign right-sided cerebellar tonsillar ectopia.
== END | disposition home or self-care (01) ==
LOC: RADMRIMAIN 06:30
PROVIDERS: ATTEND Otolaryngology
DX: H93.12 Tinnitus, left ear (principal); Q04.8 Other specified congenital malformations of brain
CPT/HCPCS: 70551